=== PATIENT | female | born 1995 | race American Indian/Alaskan Native ===

== ENCOUNTER 2018-12-01 12:23 | Outpatient (CLI) | payer MEDICAID | END 2018-12-01 15:41 | disposition home or self-care (01) | LOC: LAB 12:23 → TRG 14:48 → LAB 15:41 | PROVIDERS: ATTEND Obstetrics & Gynecology | DX: Z34.93 Encounter for supervision of normal pregnancy, unspecified, third trimester (principal); Z67.91 Unspecified blood type, Rh negative | CPT/HCPCS: 86850; 86900; 86901; J2790 ==

== ENCOUNTER 2019-01-17 09:15 | Outpatient (CLI) | payer MEDICAID ==
[2019-01-17 10:04] VITALS: BP 109/68
--- NOTE | 2019-01-17 11:37 | Ultrasound Report ---
ULTRASOUND BIOPHYSICAL PROFILE: History: Loss of fluid Technique: Transabdominal ultrasound with Doppler interrogation. 2 - breathing movements 2 - movements 2 - posture and tone 2 - Qualitative amniotic fluid volume 8 - TOTAL SCORE OF POSSIBLE 8 Heart Rate (bpm) 161
--- NOTE | 2019-01-17 11:38 | Ultrasound Report ---
ULTRASOUND OB LIMITED History: Loss of fluid, SERENE Technique: Transabdominal ultrasound with Doppler interrogation. Gestation: Single Position: Cephalic Amniotic Fluid: Normal SERENE = 16.8 cm Heart Rate: 144 BPM
== END 2019-01-17 11:36 | disposition home or self-care (01) ==
LOC: TRG 09:15
PROVIDERS: ATTEND Obstetrics & Gynecology
DX: O47.03 False labor before 37 completed weeks of gestation, third trimester (principal); Z3A.37 37 weeks gestation of pregnancy
CPT/HCPCS: 59025; 76815; 76819

== ENCOUNTER 2019-01-19 21:15 | Inpatient (IN) | payer MEDICAID ==
[2019-01-19] MEDS ORDERED: XYLOCAINE 2% INFILTRATI ONE (22:30)
[2019-01-19] MEDS ORDERED: MINERAL OIL PO PRN (22:30)
[2019-01-19] MEDS ORDERED: STADOL IV PRN (22:30)
[2019-01-19] MEDS ORDERED: BRETHINE IVP PRN (22:30)
[2019-01-19] MEDS ORDERED: BRETHINE SUB-Q PRN (22:30)
[2019-01-19] MEDS ORDERED: SUBLIMAZE IV PRN (22:30)
[2019-01-19 22:47] LABS: Hematocrit 37.9 % (30.3-42.9); Hemoglobin 12.7 gm/dl (10.1-14.3); Mean Corpuscular HGB Conc 34 % (30-34); Mean Corpuscular Volume 95 fl (79-97); Platelet Count 209 K/mm3 (140-440); Red Blood Count 3.98 M/mm3 (3.65-5.03); Red Cell Distribution Width 14.2 % (13.2-15.2)
[2019-01-19] MEDS ORDERED: NARCAN 2 MG/2 ML IV PRN (22:53)
[2019-01-19] MEDS ORDERED: MARCAINE 0.25% INFILTRATI ONE (22:57)
[2019-01-19] MEDS ORDERED: PITOCin/NS 20 UNIT/1000ML DRIP 20 UNITS/1,000 ML BAG IV SCH (23:00)
[2019-01-19] MEDS ORDERED: fentaNYL-BUPIV 2 MCG/ML-0.125% 200 MCG/100 ML BAG EPIDURAL SCH (23:00)
[2019-01-19] MEDS ORDERED: PITOCin/NS 30 UNIT/500ML 30 UNITS/500 ML BAG IV SCH (23:00)
--- NOTE | 2019-01-19 23:12 | History and Physical Report ---
History of Present Illness Date of examination: 01/19/19 Date of admission: 01/19/19 22:35 Chief complaint: contractions and water broke History of present illness: This is a 23 yo EDC 02/04/19 at 37 weeks here for contractions and water broke. She is a hx of gestational DM. Treated with Macrobid for UTI during pregnancyand treated for chlamydia in this . GBS negative. She is also Rh neg. 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 denies: smoking, alcohol abuse, prescription drug abuse - Obstetrical History Expected Date of Delivery: 02/04/19 Actual Gestation: 37 Week(s) 5 Day(s) : 2 Para: 1 Hx # Term Pregnancies: 1 Number of Pregnancies: 0 Spontaneous Abortions: 0 Induced : 0 Number of Living Children: 1 Medications and Allergies Allergies Allergy/AdvReac Type Severity Reaction Status Date / Time No Known Allergies Allergy Unverified 12/10/13 14:49 Home Medications Medication Instructions Recorded Confirmed Last Taken Type HYDROcodone/APAP 5-325 [[place] 1 each PO Q6HR PRN #10 tablet 12/10/13 01/25/15 Unknown Rx 5/325 mg] Vits96/Iron Fum/Folic 1 tab PO DAILY 01/25/15 01/25/15 01/24/15 13:00 History [ Tablet] 1 tab HYDROcodone/APAP 5-325 [[place] 1 each PO Q6HR PRN #30 tablet 01/26/15 Unknown Rx 5/325] Ibuprofen [Motrin] 800 mg PO Q8H PRN #60 tablet 01/26/15 Unknown Rx Active Meds: Active Medications Butorphanol Tartrate (Stadol) 2 mg IV Q2H PRN PRN Reason: Pain , Severe (7-10) Ephedrine Sulfate (Ephedrine Sulfate) 10 mg IV Q2M PRN PRN Reason: Hypotension Ephedrine Sulfate (Ephedrine Sulfate) 10 mg IV Q2M PRN PRN Reason: Hypotension Fentanyl (Sublimaze) 100 mcg IV Q2H PRN PRN Reason: Labor Pain Oxytocin/Sodium Chloride (Pitocin/Ns 20 Unit/1000ml Drip) 20 units in 1,000 mls @ 125 mls/hr IV DIRECT INOCENTE Oxytocin/Sodium Chloride (Pitocin/Ns 30 Unit/500ml) 30 units in 500 mls @ 1 mls/hr IV TITR INOCENTE; Protocol Lactated Ringer's (Lactated Ringers) 1,000 mls @ 125 mls/hr IV DIRECT INOCENTE Fentanyl/Bupivacaine/Sodium Chlor (Fentanyl-Bupiv 2 Mcg/Ml-0.125%) 200 mcg in 100 mls @ 12 mls/hr EPIDURAL TITR INOCENTE; Protocol Lidocaine (Xylocaine 2%) 20 ml INFILTRATI ONCE ONE Stop: 01/19/19 22:31 Mineral Oil (Mineral Oil) 30 ml PO QHS PRN PRN Reason: Constipation Naloxone HCl (Narcan 2 Mg/2 Ml) 0.2 mg IV Q5M PRN PRN Reason: Respiratory sedation Terbutaline Sulfate (Brethine) 0.25 mg SUB-Q ONCE PRN PRN Reason: Hyperstimulation/Hypertonicity Terbutaline Sulfate (Brethine) 0.25 mg IVP ONCE PRN PRN Reason: Hyperstimulation/Hypertonicity Review of Systems All systems: negative Genitourinary: contractions - Vital Signs Vital signs: Vital Signs Pulse BP 104 H 136/96 01/19/19 21:58 01/19/19 21:58 Temp Pulse Resp BP Pulse Ox 98.1 F 88 18 123/88 01/19/19 22:02 01/19/19 22:13 01/19/19 22:02 01/19/19 22:13 - Physical Exam Breasts: Positive: normal Cardiovascular: Regular rate, Normal S1 Lungs: Positive: Clear to auscultation, Normal air movement Abdomen: Positive: normal appearance, soft, normal bowel sounds. Negative: distention, tenderness, guarding Genitourinary (Female): Positive: normal external genitalia, normal perenium Vulva: both: normal Vagina: Positive: normal moisture Uterus: Positive: normal size, normal contour Anus/Rectum: Positive: normal perianal skin Extremities: Positive: normal Deep Tendon Reflex Grade: Normal +2 - Obstetrical FHR: category 1 Cervical Dilatation: 6 Cervical Effacement Percentage: 80 station: -1 Uterine Contraction Pattern: Regular Uterine Tone Measurement Phase: Contraction Uterine Contraction Intensity: Strong/Firm Results Result Diagrams: 01/19/19 22:20 All other labs normal. Assessment and Plan A/P IUP 37+ weeks GBS neg Gestational dm Admit for labor No antibiotics for GBS IVF, labs , fingerstick expect vaginal delivery
[2019-01-19] MEDS: LACTATED RINGERS 1,000 ML IV SCH ×2 (23:33→23:34)
[2019-01-20] MEDS ORDERED: TORADOL IV PRN (00:07)
[2019-01-20] MEDS ORDERED: PHENERGAN PR PRN (00:07)
[2019-01-20] MEDS ORDERED: TYLENOL PO PRN (00:07)
[2019-01-20] MEDS ORDERED: ZOFRAN IV PRN (00:07)
[2019-01-20] MEDS ORDERED: LANSINOH TP PRN (00:07)
[2019-01-20] MEDS ORDERED: TUCKS PAD TP PRN (00:07)
[2019-01-20] MEDS ORDERED: PERCOCET 5/325 PO PRN (00:07)
[2019-01-20] MEDS ORDERED: DULCOLAX PR PRN (00:07)
[2019-01-20] MEDS ORDERED: BENADRYL PO PRN (00:07)
[2019-01-20] MEDS ORDERED: PHENERGAN PO PRN (00:07)
[2019-01-20] MEDS ORDERED: MILK OF MAGNESIA PO PRN (00:07)
--- NOTE | 2019-01-20 00:31 | Procedure Note ---
OB Delivery Note - Delivery Date of Delivery: 01/20/19 Surgeon: ANGIE LORENZO Estimated blood loss: other (350cc) - Vaginal Delivery position: OA Intrapartum events: precipitous labor- <3hr Delivery induction: none Delivery augmentation: pitocin Delivery monitor: external FHT, external uterine Route of delivery: Delivery placenta: spontaneous Delivery cord: nuchal cord, 3 umbilical vessels Episiotomy: none Delivery laceration: none Anesthesia: none Delivery comments: Patient was noted to be c/c+2 and commenced to pushing a viable female infant at 2359. a nuchal cord palpated and easily reduced. The baby placed on mom chest and delayed cord clamping. The cord was clamped and cut. The placenta delivered at 0002 intact with three vessel cord. Apgars 8 and 9. wedight is 7 pounds 1 oz.. No lacs noted. EBL 350cc. Patient tolerated procedure well. - Infant A at 1 minute: 8 at 5 minutes: 9 Infant Gender: Female (7 pounds 1 oz)
[2019-01-20] MEDS ORDERED: PITOCin/NS 20 UNIT/1000ML DRIP 20 UNITS/1,000 ML BAG IV SCH (01:00)
[2019-01-20] MEDS ORDERED: SODIUM CHLORIDE FLUSH SYRINGE 10 ML IV NR (01:00)
[2019-01-20] MEDS: IBUPROFEN PO SCH ×5 (04:42→23:50)
[2019-01-20] MEDS: NORCO 5/325 PO PRN ×2 (04:42→12:32)
[2019-01-20] MEDS: COLACE PO SCH ×2 (10:35→23:50)
[2019-01-20] MEDS: PRENATAL VITAMIN PO SCH (12:32)
--- NOTE | 2019-01-20 12:50 | Progress Note ---
Assessment and Plan Recovering well Vital signs stable consult ordered Anticipate discharge to home tomorrow Subjective - Subjective Date of service: 01/20/19 Principal diagnosis: Interval history: Pt is 13 hours s/p of viable infant. No adverse intrapartum events. Patient reports: appetite normal, voiding normally, pain well controlled, ambulating normally : doing well, bottle feeding (difficulty nursing) Objective - Vital Signs Latest vital signs: Vital Signs Temp Pulse Resp BP BP Pulse Ox 01/20/19 12:35 18 01/20/19 12:32 18 01/20/19 12:25 97.8 F 82 18 106/66 98 01/20/19 08:37 97.8 F 71 18 106/63 100 01/20/19 05:01 98.7 F 74 20 106/69 100 01/20/19 01:20 82 99 01/20/19 01:18 88 88 01/20/19 01:15 78 100 01/20/19 01:10 76 86 01/20/19 01:09 82 113/78 01/20/19 01:05 78 94 01/20/19 01:00 79 99 01/20/19 00:59 82 94 01/20/19 00:55 81 99 01/20/19 00:54 71 112/74 01/20/19 00:50 76 100 01/20/19 00:45 82 100 01/20/19 00:40 86 99 01/20/19 00:39 80 113/69 01/20/19 00:35 88 100 01/20/19 00:30 88 97 01/20/19 00:28 84 91 01/20/19 00:25 96.0 F L 88 18 111/67 95 01/20/19 00:24 91 H 111/67 01/20/19 00:23 90 93 01/20/19 00:19 89 96 01/20/19 00:14 94 H 87 01/20/19 00:09 96 H 113/69 94 01/20/19 00:04 96 H 100 01/20/19 00:03 95 H 122/72 01/19/19 23:59 102 H 88 01/19/19 23:56 90 93 01/19/19 23:54 82 100 01/19/19 23:49 67 100 01/19/19 23:44 76 100 01/19/19 23:39 78 100 01/19/19 23:34 76 100 01/19/19 23:30 87 111/70 01/19/19 23:26 80 114/66 01/19/19 22:55 18 01/19/19 22:13 88 123/88 01/19/19 22:02 98.1 F 104 H 18 123/88 01/19/19 21:58 104 H 136/96 Intake and Output 01/19/19 01/20/19 01/20/19 23:59 07:59 15:59 Intake Total 2.083 240 360 Output Total 600 500 Balance 2.083 -360 -140 Intake: IV 2.083 Lactated Ringers 1,000 ml 2.083 @ 125 mls/hr IV DIRECT INOCENTE Rx#:[id number] Oral 240 Intake, Free Water 360 Output: Urine 600 500 Void 600 500 Other: Total, Intake Amount 240 Total, Output Amount 600 500 # Voids Void 1 1 Weight 175 lb Estimated Blood Loss 350 - Exam Breasts: Present: deferred Cardiovascular: Present: Regular rate, Normal S1, Normal S2, No murmurs Lungs: Present: Clear to auscultation, Normal air movement Abdomen: Present: normal appearance, soft Uterus: Present: normal, firm, fundal height below umbilicus Extremities: Present: normal
[2019-01-20 14:07] LABS: Hematocrit 35.6 % (30.3-42.9)
--- NOTE | 2019-01-20 14:36 | Anesthesia Consultation ---
Anesthesia Consult and Med Hx Date of service: 01/19/19 - Airway Anesthetic Teeth Evaluation: Good ROM Head & Neck: Adequate Mental/Hyoid Distance: Adequate Mallampati Class: Class II - Pulmonary Exam CTA: Yes - Cardiac Exam Cardiac Exam: RRR - Pre-Operative Health Status ASA Pre-Surgery Classification: ASA2 Proposed Anesthetic Plan: Epidural - Pulmonary Hx Asthma: No COPD: No Hx Pneumonia: No - Cardiovascular System Hx Hypertension: No - Central Nervous System Hx Seizures: No Hx Psychiatric Problems: No - Endocrine Hx Renal Disease: No Hx End Stage Renal Disease: No Hx Hypothyroidism: No Hx Hyperthyroidism: No - Hematic Hx Anemia: No Hx Sickle Cell Disease: No - Other Systems Hx Alcohol Use: No
--- NOTE | 2019-01-20 14:37 | Post Anesthesia Evaluation ---
- Post Anesthesia Evaluation Patient Participated: Yes Airway Patent: Yes Stable Respiratory Function: Yes Nausea/Vomiting: No Temp > 96.8F: Yes Pain Manageable: Yes Adequeate Hydration: Yes Anesthesia Complications: No Block Receding Appropriately: Yes Patient on Ventilator: No
--- NOTE | 2019-01-20 17:10 | Discharge Summary ---
Providers - Providers Date of Admission: 01/19/19 22:35 Date of discharge: 01/21/19 Attending physician: ANGIE LORENZO MD 01/20/19 12:46 Consult to [employer] [CONS] Urgent Reason For Exam: Primary care physician: ANGIE LORENZO MD Hospitalization Reason for admission: active labor, rupture of membranes Delivery: Episiotomy: none Laceration: none Other procedures: none complications: none Discharge diagnosis: IUP at term delivered Condition at discharge: Good Disposition: DC-01 TO HOME OR SELFCARE Plan - Discharge Medications Prescriptions: Ferrous Sulfate [Feosol 325 MG tab] 325 mg PO BID #30 tablet Ibuprofen [Motrin] 600 mg PO Q8H PRN #30 tablet PRN Reason: Pain oxyCODONE /ACETAMINOPHEN [Percocet 5/325] 1 tab PO Q6HR PRN #10 tablet PRN Reason: Pain - Provider Discharge Summary Activity: no sex for 6 weeks, no heavy lifting 4 weeks, no strenuous exercise Diet: routine Instructions: routine Additional instructions: [] Smoking cessation referral if applicable(refer to patient education folder for contact #) [] Refer to [facility]'s [facility] Booklet Call your doctor immediately for: * Fever > 100.5 * Heavy vaginal bleeding ( >1 pad per hour) * Severe persistent headache * Shortness of breath * Reddened, hot, painful area to leg or breast * Drainage or odor from incision. * Keep incision clean and dry at all times and follow doctor's instructions regarding bathing/showering - Follow up plan Follow up: FRED MYERS MD [Staff Physician] - 02/17/19 (Call to schedule appt for 4 weeks )
[2019-01-21] MEDS: IBUPROFEN PO SCH ×2 (05:10→13:33)
[2019-01-21] MEDS ORDERED: M-M-R II VACCINE SUB-Q ONE (06:00)
[2019-01-21] MEDS ORDERED: BOOSTRIX IM ONE (06:00)
[2019-01-21] MEDS: NORCO 5/325 PO PRN (08:30)
[2019-01-21] MEDS: COLACE PO SCH (10:18)
[2019-01-21] MEDS: PRENATAL VITAMIN PO SCH (10:18)
[2019-01-21 13:49] VITALS: BP 108/77
== END 2019-01-21 04:00 | disposition home or self-care (01) | DRG 775 ==
LOC: TRG 21:15 → LD 22:35 → OB 01-20 02:01
PROVIDERS: ADMIT Obstetrics & Gynecology; ATTEND Obstetrics & Gynecology
PROC: 10E0XZZ Delivery of Products of Conception, External Approach (ICD-10-PCS; principal; 2019-01-20)
PROC: 3E0234Z Introduction of Serum, Toxoid and Vaccine into Muscle, Percutaneous Approach (ICD-10-PCS; 2019-01-21)
DX: O24.429 Gestational diabetes mellitus in childbirth, unspecified control (principal); O62.3 Precipitate labor; O69.81X0 Labor and delivery complicated by cord around neck, without compression, not applicable or unspecified; Z3A.37 37 weeks gestation of pregnancy; Z37.0 Single live birth; Z23 Encounter for immunization
CPT/HCPCS: 36415; 59025; 76815; 76819; 82962; 85014; 85018; 85027; 86592; 86850; 86870; 86900; 86901; 90471; 90715; G0378; J2590; J3010; J7120